=== PATIENT | male | born 1975 | race Hispanic/Latino ===

== ENCOUNTER 2023-09-30 11:26 | Emergency (ER) | payer SELFPAY ==
[2023-09-30 12:05] VITALS: O2SAT 98
[2023-09-30 12:24] LABS: BASOPHILS # (AUTO) 0.1 (0.0-0.1); BASOPHILS % 0.8 % (0.0-1.0); EOSINOPHILS % 0.2 % (0.0-6.0); HEMATOCRIT 45.5 % (38.2-49.6); HEMOGLOBIN 15.5 g/dL (14.0-18.0); LYMPHOCYTES # (AUTO) 2.5 (1.0-3.2); LYMPHOCYTES % 30.4 % (18.0-39.1); MEAN CORPUSCULAR HEMOGLOBIN 31.9 pg (28-32); MEAN CORPUSCULAR HGB CONC 34.1 g/dL (31-35); MEAN CORPUSCULAR VOLUME 93.6 fL (81-99); MONOCYTES # (AUTO) 0.3 (0.2-0.8); MONOCYTES % 4.1 % (4.4-11.3); NEUTROPHILS # (AUTO) 5.3 (2.1-6.9); NEUTROPHILS % 64.4 % (38.7-80.0); PLATELET COUNT 151 x10e3/uL (140-360); RED BLOOD COUNT 4.86 x10e6/uL (4.3-5.7); RED CELL DISTRIBUTION WIDTH 13.6 % (11.7-14.4); WHITE BLOOD COUNT 8.31 x10e3/uL (4.8-10.8)
[2023-09-30 12:43] LABS: ALBUMIN 4.9 g/dL (3.5-5.0); ALBUMIN/GLOBULIN RATIO 1.8 (0.8-2.0); BILIRUBIN,TOTAL 0.6 mg/dL (0.2-1.2); CALCIUM 9.2 mg/dL (8.4-10.2); CREATININE, SERUM 0.8 mg/dL (0.72-1.25); TOTAL PROTEIN 7.7 g/dL (6.5-8.1)
[2023-09-30 13:02] LABS: THYROID STIMULATING HORMONE 0.463 uIU/mL (0.350-4.940)
[2023-09-30 13:47] LABS: ETHANOL 367.9 mg/dL (0.0-10.0)
[2023-09-30 13:56] LABS: ACETAMINOPHEN < 3.0 ug/mL (10-30)
[2023-09-30 13:57] LABS: SALICYLATE < 5.0 mg/dL (0-30)
== END 2023-09-30 13:10 | disposition home or self-care (01) ==
LOC: ER 11:38 → EDSEX 11:38 → ER 13:10
DX: R45.851 Suicidal ideations (principal); F10.20 Alcohol dependence, uncomplicated
CPT/HCPCS: 36415; 80053; 80320; 80329; 84443; 85025; 99283